=== PATIENT | female | born 2000 | race African-American/Black ===

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

== ENCOUNTER 2020-08-29 14:53 | Emergency (ER) | payer OTHER | END 2020-08-29 15:10 | disposition home or self-care (01) | LOC: JVIRT 14:53 | DX: Z11.59 Encounter for screening for other viral diseases (principal) | CPT/HCPCS: C9803; Q3014-GT; U0003 ==

== ENCOUNTER 2020-10-01 00:12 | Emergency (ER) | payer OTHER ==
[2020-10-01] MEDS ORDERED: DIPHTH,PERTUSS(ACELL),TET 0.5 ML DISP.SYRIN IM ONE ×2 (01:00→01:11)
[2020-10-01 01:17] VITALS: BP 106/67; PULSE 59; TEMP 98
== END 2020-10-01 01:31 | disposition home or self-care (01) ==
LOC: JER 00:12
PROC: 3E0234Z Introduction of Serum, Toxoid and Vaccine into Muscle, Percutaneous Approach (ICD-10-PCS; principal; 2020-10-01)
DX: S60.572A Other superficial bite of hand of left hand, initial encounter (principal)
CPT/HCPCS: 90715; 99284-25

== ENCOUNTER 2020-10-11 17:43 | Emergency (ER) | payer OTHER ==
[2020-10-11 17:51] VITALS: BP 115/74; PULSE 68; TEMP 98.1; BMI 23.5
[2020-10-11] MEDS ORDERED: ACETAMINOPHEN/CAFFEINE/BUTALBITAL 1 TAB PO ONE (20:02)
[2020-10-11] MEDS ORDERED: ACETAMINOPHEN/CAFFEINE/BUTALBITAL 1 TAB ONE (20:06)
== END 2020-10-11 20:12 | disposition home or self-care (01) ==
LOC: JERFT 17:43 → JER 17:43 → JERFT 20:12
DX: R51.9 Headache, unspecified (principal)
CPT/HCPCS: 70450-TC; 99284-25

== ENCOUNTER 2021-10-20 16:55 | Emergency (ER) | payer OTHER ==
[2021-10-20 17:21] VITALS: BP 107/71; PULSE 71; TEMP 97.9; BMI 19.0
== END 2021-10-20 18:05 | disposition home or self-care (01) ==
LOC: JER 16:55
DX: S16.1XXA Strain of muscle, fascia and tendon at neck level, initial encounter (principal); S39.012A Strain of muscle, fascia and tendon of lower back, initial encounter; S80.01XA Contusion of right knee, initial encounter; Y04.8XXA Assault by other bodily force, initial encounter
CPT/HCPCS: 99283-25